=== PATIENT | male | born 1950 | race Caucasian/White ===

== ENCOUNTER → 2017-01-01 | Outpatient (CLI) | payer OTHER | LOC: CIMAGING 09:53 | PROVIDERS: ATTEND Physical Medicine & Rehabilitation | DX: S42.451A Displaced fracture of lateral condyle of right humerus, initial encounter for closed fracture (principal) | CPT/HCPCS: 73080-PO ==

== ENCOUNTER 2018-09-19 19:26 | Observation (INO) | payer OTHER ==
--- NOTE | 2018-09-19 20:19 | EDPHY ---
H & P Time Seen by Provider: 09/19/18 20:02 HPI/ROS: CHIEF COMPLAINT: Dizzy, lightheaded HISTORY OF PRESENT ILLNESS: Patient is a 67-year-old male with multiple medical problems including diabetes, COPD and hypertension who presents emergency department with dizziness and lightheadedness. His symptoms started on Wednesday. They have been on and off. He feels more off balance than vertigo. The patient has had nausea with no vomiting. He has had a decreased appetite. Patient's made him come in this evening because he did not eat his medial and he was having worsening episodes of dizziness. The patient denies any shortness of breath. He states he is unable to walk up the stairs due to his dizziness. The patient describes left upper quadrant discomfort since Wednesday. He describes it as "tightness." No rash. Patient denies any visual change. No tinnitus or hearing loss. REVIEW OF SYSTEMS: 10 systems were reveiwed and are negative with the exception of the elements mentioned in the history of present illness. Past Medical/Surgical History: Includes COPD, diabetes, high cholesterol, hypertension, kidney stones, prostate cancer Past surgical history: Includes appendectomy, tonsillectomy, back surgery, prostate surgery, orthopedic surgery, cataract Social history: The patient is a former smoker. Smoking Status: Former smoker Physical Exam: 104/89, 94, 18, 36.9, 96% on room air GENERAL: Well-appearing, in no acute distress, alert. HEENT: Eyes normal to inspection, normal pharynx, no signs of dehydration. No nystagmus. TMs negative bilaterally. NECK: Normal, supple. RESPIRATORY: Clear to auscultation bilaterally, no rales, rhonchi or wheezing. CVS: Regular rate and rhythm, no rubs, murmurs, or gallops. ABDOMEN: Soft, nontender, nondistended, no organomegaly. BACK: Normal to inspection, no CVA tenderness. SKIN: Normal color, no rash, warm, dry. No pallor. EXTREMITIES: No pedal edema, no calf tenderness, no Homans sign or cords, no joint swelling. NEURO/PSYCH: Higher functions: Alert and Oriented x3. Normal speech and cognition. Normal mood and affect. Cranial nerves: Normal as tested. Cerebellar: Normal as tested. Good finger to nose, good [id number], normal gait. Peripheral exam: Normal motor exam. Normal sensation. Constitutional: Initial Vital Signs Heart Rate 91 09/19/18 19:52 Respiratory Rate 16 09/19/18 19:52 Blood Pressure 104/89 H 09/19/18 19:52 O2 Sat (%) 93 09/19/18 19:52 O2 Delivery Mode Room Air Allergies/Adverse Reactions: ceftriaxone [From Rocephin] Allergy (Severe, Verified 09/19/18 19:56) Other-Enter Comments iodine Allergy (Intermediate, Verified 09/19/18 19:56) Hives Home Medications: Medication Instructions Recorded Atorvastatin Calcium 09/19/18 Lisinopril 09/19/18 Metformin HCl 09/19/18 Nortriptyline HCl 09/19/18 Pioglitazone HCl 09/19/18 Spiriva Inhaler (RX) 09/19/18 Verapamil 09/19/18 Medical Decision Making - Diagnostics Imaging Results: Imaging Impressions Head CT 09/19/18 20:21 Impression: Negative noncontrast CT of the head with no intracranial posttraumatic sequela identified. Results called to LAURA STREETER M.D. on 09/19/2018 at 20:46. ED Course/Re-evaluation: In the emergency department I discussed possible etiologies with the patient. I answered all his questions. IV was placed. Patient given normal saline 250 mL IV for hydration. Laboratory studies, EKG, head CT were ordered. Patient was given meclizine 25 mg orally. EKG shows normal sinus rhythm, normal rate, normal axis, normal intervals. There is slight ST elevation in I, II. CBC chemistry unremarkable. Troponin is negative. 2145: The nurse stood the patient at his bedside and he was unstable per report. Orthostatic VS unremarkable. I rechecked the patient and he was still feeling unstable. The patient will be admitted for further observation and care. Discussed the case with Dr. Rodriguez from the hospitalist service. He will accept the patient. Differential Diagnosis: My differential includes but is not limited to ischemic CVA, hemorrhagic CVA, dissection, aneurysm, ACS, acute OR, dysrhythmia, dehydration, electrolyte abnormality, sugar abnormality - Data Points Laboratory Results: 09/19/18 09/19/18 20:57 20:56 POC Sodium 142 mEq/L mEq/L (135-145) POC Potassium 4.2 mEq/L mEq/L (3.3-5.0) POC Chloride 102.0 mEq/L mEq/L (97-110) POC Total CO2 26 mEq/L mEq/L (22-31) POC BUN 30 mg/dL H mg/dL (7-23) POC Creatinine 1.1 mg/dL mg/dL (0.7-1.3) POC Glucose 109 mg/dL H mg/dL (70-100) POC Calcium 9.8 mg/dL mg/dL (8.5-10.4) POC Troponin I 0.01 ng/mL ng/mL (0.00-0.08) Point of Care Test Results: CBC CBC Collection Date 09/19/18 CBC Collection Time 20:45 WBC 7.16 RBC 5.02 HGB 14.5 HCT 44.6 PLT 260 Neut # 4.69 Neut 65.5 LYMPH # 1.53 LYMPH 21.4 MCV 88.8 Chemistry 09/19/18 09/19/18 20:57 20:56 POC Sodium 142 mEq/L mEq/L (135-145) POC Potassium 4.2 mEq/L mEq/L (3.3-5.0) POC Chloride 102.0 mEq/L mEq/L (97-110) POC Total CO2 26 mEq/L mEq/L (22-31) POC BUN 30 mg/dL H mg/dL (7-23) POC Creatinine 1.1 mg/dL mg/dL (0.7-1.3) POC Glucose 109 mg/dL H mg/dL (70-100) POC Calcium 9.8 mg/dL mg/dL (8.5-10.4) POC Troponin I 0.01 ng/mL ng/mL (0.00-0.08) Urine Dip Collection Date 09/19/18 Collection Time 21:40 Specific [place] (1.002-1.030) 1.020 PH (5.0-7.5) 5.5 Leukocytes (Negative) Negative Nitrites (Negative) Negative Protein (Negative) Negative Glucose (Negative) Negative Ketones (Negative) Negative Urobilnogen (0.2-1.0 EU) 0.2 Bilirubin (Negative) Negative Blood (Negative) 1+ Departure - Departure Disposition: [facility] Inpatient Acute Clinical Impression: Dizziness Condition: Good Instructions: Lightheadedness (ED), Dizziness (ED) Referrals: Rosacci,Jeferson M, DO [Primary Care Provider] - As per Instructions
--- NOTE | 2018-09-19 22:57 | CPEKG ---
Test Reason : OPEN Blood Pressure : / mmHG Vent. Rate : 091 BPM Atrial Rate : 091 BPM P-R Int : 198 ms QRS Dur : 078 ms QT Int : 339 ms P-R-T Axes : 008 -12 051 degrees QTc Int : 418 ms Sinus rhythm Probable left atrial enlargement Minimal ST elevation, anterior leads Confirmed by Jessie Lemus ([id number]) on 09/19/2018 10:56:53 PM Referred By: Jessie Lemus Confirmed By:Jessie Lemus
[2018-09-20] MEDS ORDERED: ONDANSETRON 4 MG/2 ML VIAL IVP PRN (00:41)
[2018-09-20] MEDS ORDERED: ONDANSETRON DISINTEGRATING 4 MG TAB PO PRN (00:41)
[2018-09-20] MEDS ORDERED: ACETAMINOPHEN 325 MG TAB PO PRN (00:41)
[2018-09-20] MEDS ORDERED: MECLIZINE HCL 12.5 MG TAB PO PRN (00:42)
--- NOTE | 2018-09-20 01:02 | PDGENHP ---
History and Physical - Chief Complaint Lightheadedness - History of Present Illness 67 yo M w/ hx of COPD, HTN, and DM presents with lightheadedness. The patient tells me he first noticed the symptoms 3 days ago. He feels constantly lightheaded and unsteady on his feet. This has now lasted 3 days. He presented to the ED where an initial work-up was unremarkable. Head CT with no acute findings, ECG in NSR, and laboratory work-up otherwise reassuring. His BP is in the low/normal range. During my evaluation the patient has no acute complaints. His neurologic exam is normal. He denies weakness, numbness, or aphasia. His unsteady gait does not favor either side. He has not had any similar symptoms in the past or known bouts of vertigo. He is being admitted for further evaluation. Case discussed with ED physician Dr. Lemus; records reviewed and summarized above. History Information - Allergies/Home Medication List Allergies/Adverse Reactions: ceftriaxone [From Rocephin] Allergy (Severe, Verified 09/19/18 19:56) Other-Enter Comments iodine Allergy (Intermediate, Verified 09/19/18 19:56) Hives Home Medications: Atorvastatin Calcium 09/19/18 [Last Taken Unknown] Lisinopril 09/19/18 [Last Taken Unknown] Metformin HCl 09/19/18 [Last Taken Unknown] Nortriptyline HCl 09/19/18 [Last Taken Unknown] Pioglitazone HCl 09/19/18 [Last Taken Unknown] Spiriva Inhaler (RX) 09/19/18 [Last Taken Unknown] Verapamil 09/19/18 [Last Taken Unknown] I have personally reviewed and updated: family history, medical history - Past Medical History COPD, diabetes type 2, hypertension - Surgical History Reports: appendectomy - Family History Positive for: cancer, diabetes type II - Social History Smoking Status: Former smoker Review of Systems Review of Systems: ROS: 10pt was reviewed & negative except for what was stated in HPI & below Physical Exam Physical Exam: Temp Pulse Resp BP Pulse Ox 36.4 C 83 18 103/82 H 96 09/20/18 00:28 09/20/18 00:28 09/20/18 00:28 09/20/18 00:28 09/20/18 00:28 Constitutional: no apparent distress, not in pain Eyes: PERRL, EOMI Ears, Nose, Mouth, Throat: moist mucous membranes, no oral mucosal ulcers Cardiovascular: regular rate and rhythym, no murmur, rub, or gallop Respiratory: no respiratory distress, clear to auscultation Gastrointestinal: normoactive bowel sounds, soft, non-tender abdomen Skin: warm, normal color Musculoskeletal: no muscle tenderness Neurologic: AAOx3, sensation intact bilaterally, CN II-XII Intact, No weakness, No numbness Psychiatric: interacting appropriately, not anxious Lab Data & Imaging Review POC Sodium 142 mEq/L (135-145) 09/19/18 20:57 POC Potassium 4.2 mEq/L (3.3-5.0) 09/19/18 20:57 POC Chloride 102.0 mEq/L (97-110) 09/19/18 20:57 POC Total CO2 26 mEq/L (22-31) 09/19/18 20:57 POC BUN 30 mg/dL (7-23) H 09/19/18 20:57 POC Creatinine 1.1 mg/dL (0.7-1.3) 09/19/18 20:57 POC Glucose 109 mg/dL (70-100) H 09/19/18 20:57 POC Calcium 9.8 mg/dL (8.5-10.4) 09/19/18 20:57 POC Troponin I 0.01 ng/mL (0.00-0.08) 09/19/18 20:56 Imaging Review: Imaging Impressions Head CT 09/19/18 20:21 Impression: Negative noncontrast CT of the head with no intracranial posttraumatic sequela identified. Results called to LAURA LEMUS M.D. on 09/19/2018 at 20:46. Visualized and Interpreted EKG results: Yes EKG Interpretation: Positive for: normal sinsus rhythm Assessment & Plan Assessment: 67 yo M w/ COPD, HTN, and NIDDM presents with 3 days of dizziness. Plan: 1. Dizziness - Patient describes 3 days of persistent lightheadedness and unsteady gait. His neurologic exam is unremarkable and CT of his head with no acute findings (personally reviewed/interpreted). Etiology of this is uncertain. Considerations include iatrogenic hypotension, arrhythmia, posterior circulation stroke, and viral illness. - Hold BP medications - Monitor on telemetry - Will order MRI of the brain for further evaluation - PT/OT evaluations 2. HTN - On lisinopril as an outpatient. - Hold home lisinopril noting low/normal BPs and ongoing dizziness 3. NIDDM - Continue oral medications pending reconciliation 4. COPD - Mild, no evidence of acute exacerbation. - Continue Spiriva pending reconciliation Diet - Regular Code - Full Ppx - SCDs Dispo - Admit under observation status
[2018-09-20 05:18] LABS: PLATELET COUNT 234 10^3/uL (150-400)
--- NOTE | 2018-09-20 09:24 | ASMTCMCOM ---
CM Note CM Note Notes: Chart reviewed. Patient admitted via ED with diagnosis of COPD, HTN and DM. He has c/o of significant dizziness. CT negative. CM to follow for needs. Plan: TBD Date Signed: 09/20/2018 09:23 AM Electronically Signed By:Chelsea Mehta RN
[2018-09-20 11:24] VITALS: BP 119/80
[2018-09-20] MEDS ORDERED: TEARS/DEXTRAN 70/HYPROMELLOSE 15 ML OPHT.BTL EACHEYE PRN (12:14)
--- NOTE | 2018-09-20 12:26 | HOSPPROG ---
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: Exam: alert oriented skin warm dry color ok resps not labored lungs clear BSs heart regular abd soft nondistended nontender, bowel sounds present limbs warm, no edema iv site ok Lab data: Repeat chemistry still showing elevated BUN otherwise unremarkable I reviewed images and radiologist report from his MRI scan today which is essentially normal, no signs of stroke, bleed, tumor, infection, or other concerning abnormalities Objective: Vital Signs Temp Pulse Resp BP Pulse Ox 36.4 C 89 25 H 119/80 96 09/20/18 11:22 09/20/18 11:22 09/20/18 11:22 09/20/18 11:22 09/20/18 11:22 Laboratory Results 09/20/18 05:03 09/20/18 05:03 09/19/18 09/20/18 09/21/18 06:59 06:59 06:59 Intake Total 1400 Balance 1400 ICD10 Worksheet Patient Problems: Problems Problem Status Onset Dizziness Acute
--- NOTE | 2018-09-20 12:47 | PDDCSUM ---
Discharge Summary Discharge Summary: DISCHARGE DIAGNOSES: * Dizziness and disequilibrium * Hypotension * Pre renal azotemia * Chronic hypertension on medications at home * COPD stable * Diabetes type 2 PROCEDURES: CT scan of head MRI of brain HOSPITAL COURSE SUMMARY: This patient comes in saying that he has noticed lower blood pressures at home for approximately 1 month than usual while taking his chronic blood pressure medicines. He developed over the past 3 days a lightheadedness and disequilibrium and some mild anorexia, but without any other attendant symptoms. His examination was unremarkable other than some moderately low blood pressures with systolics in the 98-104 range which is very unusual for him. His examination has otherwise been normal here. The only abnormality in all the various tests that he has had is an elevation of BUN at 31. There have been no focal neurologic changes. There is no sign of infection that we can see. CT and MRI of the brain are unremarkable. We have held his blood pressure medicine here in his blood pressures have come back up to his usual 120/80 range. He is feeling much better with this. At this time he is now eating and drinking normally up walking in the hallway without any difficulty, is not orthostatic by vital sign changes. The underlying cause of this presenting syndrome is uncertain. Is possible that he had some type of viral illness. It is possible that his blood pressures simply became too low for him with his medications. Though he appears to possibly have been dehydrated he states he has been drinking fluids okay though does admit that in last 3 days he has had decreased intake of food and fluids. At this time he is stable for discharge to home. Will have him stay off of his blood pressure medicines to begin with and monitors blood pressures very closely. He is advised to keep well hydrated. PENDING TEST RESULTS: None MEDICATION CHANGES: Patient is to hold his lisinopril and verapamil at this time and follow blood pressures, follow up with primary care for blood pressure control management FOLLOW-UP PLAN: He will make an appointment with his primary care physician later this week Greater than 35 minutes bedside and care coordination time today
--- NOTE | 2018-09-20 14:02 | ASMTLACE ---
LACE Length of stay for Answers: Less than 1 day current admission Comorbidities - select Answers: Chronic pulmonary disease all that apply Diabetes (uncontrolled or controlled) # of Emergency department Answers: 1-2 visits in the last 6 months Score: 4 Date Signed: 09/20/2018 02:02 PM Electronically Signed By:Chelsea Mehta RN
--- NOTE | 2018-09-20 14:08 | ASDISCHSUM ---
Discharge Information Plan Status:Home with No Needs Medically Cleared to Leave:09/19/2018 Discharge Date:09/20/2018 01:54 PM CM D/C Disposition:Home, Routine, Self-Care ADT D/C Disposition:Home, Routine, Self-Care Projected Discharge Date:09/20/2018 01:54 PM Transportation at D/C: Discharge Delay Reason: Follow-Up Date:09/20/2018 01:54 PM Discharge Slot: Final Diagnosis: Placement Information Patient Contact Information Contact Name:ALONZO Relationship: Address:[address] [place] [address] City:[place] Alternate Phone: [facility]/Zip Code:[place] [address] Email: Financial Information Financial Class:Medicare Advantage Plans Primary Plan Desc:[employer] MEDICARE Primary Plan Number:[id number] Secondary Plan Desc: Secondary Plan Number: Assessment Information [facility] CM Progress Note CM Note CM Note Notes: Chart reviewed. Patient admitted via ED with diagnosis of COPD, HTN and DM. He has c/o of significant dizziness. CT negative. CM to follow for needs. Plan: TBD Date Signed: 09/20/2018 09:23 AM Electronically Signed By:Chelsea Mehta RN LACE LACMeseret Length of stay for Answers: Less than 1 day current admission Comorbidities - select Answers: Chronic pulmonary disease all that apply Diabetes (uncontrolled or controlled) # of Emergency department Answers: 1-2 visits in the last 6 months Score: 4 Date Signed: 09/20/2018 02:02 PM Electronically Signed By:Chelsea Mehta RN Intervention Information
--- NOTE | 2018-09-20 14:10 | ASMTDCNOTE ---
Case Management Discharge Discharge Order Complete? Answers: Yes Patient to Obtain Answers: Independently Medications Transportation Arranged Answers: Family/Friends Family Notified Answers: Yes Discharge Comments Notes: Medically cleared for discharge to home. No current needs. Date Signed: 09/20/2018 02:09 PM Electronically Signed By:Chelsea Mehta RN
[2018-09-20] MEDS ORDERED: metFORMIN HCL 500 MG TAB PO SCH (18:00)
[2018-09-20] MEDS ORDERED: NORTRIPTYLINE HCL 50 MG CAP PO SCH (21:00)
[2018-09-20] MEDS ORDERED: ATORVASTATIN CALCIUM 40 MG TAB PO SCH (21:00)
[2018-09-20] MEDS ORDERED: TIOTROPIUM INHALER 18 MCG/DOSE 5 DOSE/MDI IH SCH (21:00)
[2018-09-20] MEDS ORDERED: PIOGLITAZONE HCL 15 MG TAB PO SCH (21:00)
== END 2018-09-20 13:54 | disposition home or self-care (01) ==
LOC: CED 19:26 → CEDHOLD 22:18 → F3N 09-20 00:03
PROVIDERS: ADMIT Student in an Organized Health Care Education/Training Program; ATTEND Internal Medicine
DX: R42 Dizziness and giddiness (principal); I95.9 Hypotension, unspecified; R79.89 Other specified abnormal findings of blood chemistry; I10 Essential (primary) hypertension; J44.9 Chronic obstructive pulmonary disease, unspecified; E11.9 Type 2 diabetes mellitus without complications; E78.5 Hyperlipidemia, unspecified; Z87.442 Personal history of urinary calculi; Z85.46 Personal history of malignant neoplasm of prostate; Z87.891 Personal history of nicotine dependence; Z79.84 Long term (current) use of oral hypoglycemic drugs
CPT/HCPCS: 70450; 70551; 93005; 99285; G0378; 80048-ER; 84484-ER